=== PATIENT | female | born 1955 | race Caucasian/White ===

== ENCOUNTER → 2018-01-31 | Outpatient (CLI) | payer BC ==
[~2018-01-31] MED LIST: 00186-0370-20 IH; ALBUTEROL SULFAT3 M3 IH; ALEVE 220MG220 MG PO; AMLODIPINE BES2.5 MG PO; ASPIRIN 81M81 MG/TA2 PO; ASPIRIN E.C. 8181 MG PO; ATENOLOL25 MG PO; B COMPLEX #11 TA1 PO; CARDENE 20MG CA20 M1 PO; CARDIZEM 90MG T90 MG PO; COMBIVENT INH14.7 GM IH; CRESTOR40 MG PO; DEXILANT60 MG PO; DIAZIDE PO; DILTIAZEM90 MG PO; ESTROVEN PO; FISH OIL1000 MG PO; FOSAMAX 70MG TA70 MG PO; FOSAMAX PO; FOSAMAX5 MG PO; HCTZ; LASIX 20MG TABL20 MG PO; LISINOPRIL; LIVALO2 MG PO; LYSINE1000 MG PO; MEVACOR 20M20 MG/TAB PO; MEVACOR10 MG PO; MULTIVITAMIN1 CTB PO; NATURAL E400 IU PO; NITROQUICK0.4 MG SL; NITROSTAT0.4 MG/TAB SL; NORVASC 5MG5 MG/TAB PO; OYSCO 500500 M1 PO; PHARMASSURE GA500 MG PO; PLAVIX 75MG TAB75 MG PO; PREDNISONE20 MG PO; PRIL40 PO; PRILOSEC 20MG20 MG PO; PROAIR HFA0.09 MG/AC IH; TYLENOL 8 HR PO; VITAMIN C500 MG PO; VITAMIN D32000 I1 PO; ZESTRIL40 MG PO; ZYRTEC 10MG10 MG PO
== END ==
LOC: COL.RAD 08:09
DX: R14.2 Eructation (principal); R19.7 Diarrhea, unspecified
CPT/HCPCS: A9541

== ENCOUNTER 2020-07-26 06:23 | Day surgery (SDC) | payer BC ==
[~2020-07-26] VITALS: Ht 167.6 cm; Wt 97.7 kg
[2020-07-26] MEDS ORDERED: PROTONIX 40MG T40 MG PO (07:15)
[2020-07-26] MEDS ORDERED: GARLIC100 MG PO (07:16)
[2020-07-26] MEDS ORDERED: TYLENOL 8 HR PO (07:17)
[2020-07-26] MEDS ORDERED: 00186-0370-20 IH (07:18)
[2020-07-26] MEDS ORDERED: MASON NATURAL2000 IU PO (07:18)
[2020-07-26] MEDS ORDERED: ASPIRIN 81M81 MG/TA2 PO (07:19)
[2020-07-26] MEDS ORDERED: PROBIOTIC FORMU1 CAP PO (07:20)
[2020-07-26] MEDS ORDERED: DUO-KAPS1 CAP PO (07:22)
[2020-07-26] MEDS ORDERED: LYSINE1000 MG PO (07:22)
[2020-07-26] MEDS ORDERED: VITAMIN B COMPL1 SGL PO (07:23)
[2020-07-26] MEDS ORDERED: OSCAL 500 TAB500 MG PO (07:24)
[2020-07-26] MEDS ORDERED: LASIX 20MG TABL20 MG PO (07:25)
[2020-07-26] MEDS ORDERED: ALEVE 220MG220 MG PO (07:26)
[2020-07-26] MEDS ORDERED: THEO-24400 MG PO (07:27)
[2020-07-26] MEDS ORDERED: COZAAR 50MG50 MG/TAB PO (07:28)
[2020-07-26] MEDS ORDERED: NITROSTAT0.4 MG/TAB SL (07:29)
[2020-07-26] MEDS ORDERED: EPA FISH OIL1 SGL PO (07:31)
[2020-07-26] MEDS ORDERED: CARAFATE 1GM1 G PO (07:32)
[2020-07-26] MEDS ORDERED: CARDENE 20MG CA20 M1 PO (07:33)
[2020-07-26] MEDS ORDERED: CRESTOR 10MG10 MG PO (07:33)
[2020-07-26] MEDS ORDERED: NATURAL E400 IU PO (07:34)
[2020-07-26] MEDS ORDERED: VITAMIN C500 MG PO (07:35)
[2020-07-26] MEDS ORDERED: LOPRESSOR 550 MG/TAB PO (07:36)
[2020-07-26] MEDS ORDERED: PROAIR HFA0.09 MG/AC IH (07:37)
[2020-07-26 07:40] VITALS: BP 133/76; PULSE 49; TEMP 98
[2020-07-26 09:40] VITALS: BP 125/66; PULSE 51
--- NOTE | 2020-07-26 09:40 | NUR ---
Returns to room 1 per cart from surgery accompanied by Louis Sanders CRNA and Cassandra MALDONADO. Patient is awake and alert. Dressing clean and dry on the left hand. IV fluids infusing and site is free of redness. Siderails up x2 and call light in reach. Daughter in room. Allowed to rest.
[2020-07-26 09:55] VITALS: BP 140/65; PULSE 42
--- NOTE | 2020-07-26 09:55 | NUR ---
Continues to rest without complaints of pain or nausea. Jovanny wrap dressing clean and dry.
[2020-07-26 10:05] VITALS: BP 141/63; PULSE 51
--- NOTE | 2020-07-26 10:05 | NUR ---
Eating toast and drinking Pepsi. Room air sats 95%. Jovanny wrap dressing clean and dry on the left arm.
[2020-07-26 10:20] VITALS: BP 136/69; PULSE 57
--- NOTE | 2020-07-26 10:20 | NUR ---
Tolerated Pepsi and toast. Denies pain or nausea. Left hand dressing clean and dry.
--- NOTE | 2020-07-26 10:30 | NUR ---
IV discontinued and site is free of redness. Patient dresses self.
[2020-07-26] MEDS ORDERED: NORCO 325 MG-51 TAB PO (10:33)
[2020-07-26] MEDS ORDERED: ZOFRAN 4MG T4 MG/TAB PO (10:34)
[2020-07-26] MEDS ORDERED: COLACE 100100 MG/CAP PO (10:34)
--- NOTE | 2020-07-26 10:53 | NUR ---
Dismissal instructions given and voices understanding of these. Provided scripts for Goodridge, Andrés, and Jerome. Follow up appointment made and given to patient.
--- NOTE | 2020-07-26 10:58 | NUR ---
Patient dismissed to home driven by daughter and taken to the front door per wheelchair and assisted into car by this RN with instructions in hand.
== END 2020-07-26 11:58 | disposition home or self-care (01) ==
LOC: SDCO 06:23
DX: G56.02 Carpal tunnel syndrome, left upper limb (principal); I48.91 Unspecified atrial fibrillation; J44.9 Chronic obstructive pulmonary disease, unspecified; E78.00 Pure hypercholesterolemia, unspecified; Z20.828 Contact with and (suspected) exposure to other viral communicable diseases; K21.9 Gastro-esophageal reflux disease without esophagitis; Z87.891 Personal history of nicotine dependence; I25.119 Atherosclerotic heart disease of native coronary artery with unspecified angina pectoris; I10 Essential (primary) hypertension; E78.5 Hyperlipidemia, unspecified; G47.33 Obstructive sleep apnea (adult) (pediatric); I25.118 Atherosclerotic heart disease of native coronary artery with other forms of angina pectoris; Z79.82 Long term (current) use of aspirin; Z88.0 Allergy status to penicillin; Z79.899 Other long term (current) drug therapy; Z91.048 Other nonmedicinal substance allergy status
CPT/HCPCS: J0360; J0690; J1885; J2250; J2405; J2704; J3010; J7030

== ENCOUNTER → 2020-10-21 | Outpatient (CLI) | payer BC ==
[~2020-10-21] MED LIST changes: +CARAFATE 1GM1 G PO; +COLACE 100100 MG/CAP PO; +COZAAR 50MG50 MG/TAB PO; +CRESTOR 10MG10 MG PO; +DUO-KAPS1 CAP PO; +EPA FISH OIL1 SGL PO; +GARLIC100 MG PO; +LOPRESSOR 550 MG/TAB PO; +MASON NATURAL2000 IU PO; +NORCO 325 MG-51 TAB PO; +OSCAL 500 TAB500 MG PO; +PROBIOTIC FORMU1 CAP PO; +PROTONIX 40MG T40 MG PO; +THEO-24400 MG PO; +VITAMIN B COMPL1 SGL PO; +ZOFRAN 4MG T4 MG/TAB PO
== END ==
LOC: COL.RAD 08:00
DX: K21.9 Gastro-esophageal reflux disease without esophagitis (principal)
CPT/HCPCS: A9541

== ENCOUNTER 2020-12-02 08:31 | Day surgery (SDC) | payer BC ==
[~2020-12-02] VITALS: Ht 167.6 cm; Wt 92.5 kg
[~2020-12-02 08:31] MED LIST changes: -CRESTOR 10MG10 MG PO
[2020-12-02 09:48] VITALS: BP 148/94; PULSE 51; TEMP 97.6
[2020-12-02] MEDS ORDERED: K-DUR20 MEQ PO (10:04)
[2020-12-02] MEDS ORDERED: FLEXERIL 1010 MG/TAB PO (10:06)
[2020-12-02] MEDS ORDERED: NATURAL E400 IU PO (10:08)
[2020-12-02] MEDS ORDERED: EPIPEN 2-PAK1 MG/ML IM (10:08)
[2020-12-02] MEDS ORDERED: NITROSTAT0.4 MG/TAB SL (10:11)
[2020-12-02] MEDS ORDERED: ALBUTEROL SULFAT3 M3 IH (10:11)
[2020-12-02] MEDS ORDERED: COZAAR 50MG50 MG/TAB PO (10:12)
[2020-12-02] MEDS ORDERED: LOPRESSOR 550 MG/TAB PO (10:13)
[2020-12-02] MEDS ORDERED: FLONASEALLERGY NS (10:13)
[2020-12-02] MEDS ORDERED: STOOL SOFTENER100 M2 PO (10:14)
[2020-12-02 10:15] VITALS: BP 127/81; PULSE 50
--- NOTE | 2020-12-02 10:19 | NUR ---
Pt returns from Endo procedure via cart. Pt ambulates from cart to recliner with RN assist. Monitors on and alarms set. Call light within reach. Daughter present in room. Pt alert and oriented and voices no concerns. Food and drink brought for pt. Report received from Yolanda RN to ERICA Heredia and relayed to this RN.
--- NOTE | 2020-12-02 10:40 | NUR ---
Pt taking food and drink well. No complications voiced.
--- NOTE | 2020-12-02 10:57 | NUR ---
Discharge instructions given to pt and daughter. Handed to them are a thank you card, discharge instructions, diagnosis information, and procedural photos. All questions answered to her satisfaction.
--- NOTE | 2020-12-02 11:04 | NUR ---
Pt transferred out of hospital via wheelchair and this RN to private vehicle driven by daughter.
== END 2020-12-02 11:04 | disposition home or self-care (01) ==
LOC: SDCO
DX: K21.00 Gastro-esophageal reflux disease with esophagitis, without bleeding (principal); K44.9 Diaphragmatic hernia without obstruction or gangrene; K58.9 Irritable bowel syndrome, unspecified; G47.33 Obstructive sleep apnea (adult) (pediatric); E66.9 Obesity, unspecified; E78.2 Mixed hyperlipidemia; J44.9 Chronic obstructive pulmonary disease, unspecified; I10 Essential (primary) hypertension; I71.2 Thoracic aortic aneurysm, without rupture; I25.119 Atherosclerotic heart disease of native coronary artery with unspecified angina pectoris; I87.2 Venous insufficiency (chronic) (peripheral); J45.909 Unspecified asthma, uncomplicated; Z90.89 Acquired absence of other organs; Z20.822 Contact with and (suspected) exposure to COVID-19; Z90.710 Acquired absence of both cervix and uterus; Z90.49 Acquired absence of other specified parts of digestive tract; Z79.82 Long term (current) use of aspirin; Z85.42 Personal history of malignant neoplasm of other parts of uterus; Z79.891 Long term (current) use of opiate analgesic; Z88.0 Allergy status to penicillin; Z88.1 Allergy status to other antibiotic agents; Z91.030 Bee allergy status; Z91.018 Allergy to other foods; Z99.89 Dependence on other enabling machines and devices; Z79.899 Other long term (current) drug therapy
CPT/HCPCS: J0360; J2704; J3010; J7120

== ENCOUNTER 2023-12-06 09:29 | Day surgery (SDC) | payer BC ==
[~2023-12-06] VITALS: Ht 170.2 cm; Wt 91.6 kg
[~2023-12-06 09:29] MED LIST changes: +EPIPEN 2-PAK1 MG/ML IM; +FLEXERIL 1010 MG/TAB PO; +FLONASEALLERGY NS; +K-DUR20 MEQ PO; +LR 1,000 ML IV SCH; +Ondansetron 4 MG/2 ML VIAL IV PRN; +STOOL SOFTENER100 M2 PO
[2023-12-06 10:38] VITALS: BP 181/83; PULSE 57; TEMP 97
[2023-12-06] MEDS ORDERED: FOSAMAX 70MG TA70 MG PO (10:52)
[2023-12-06] MEDS ORDERED: PROCARDIA20 MG PO (10:53)
[2023-12-06] MEDS ORDERED: SPORANOX100 MG PO (10:56)
[2023-12-06] MEDS ORDERED: COZAAR 25MG25 MG/TAB PO (10:56)
[2023-12-06] MEDS ORDERED: Lidocaine PF 2% (20 MG/ML) 5 ML VIAL ONE ×2 (10:57→12:10)
[2023-12-06] MEDS ORDERED: MELATONIN5 M1 PO (10:59)
[2023-12-06] MEDS ORDERED: VITAMIN D3400 I1 PO (11:00)
[2023-12-06] MEDS ORDERED: PROBIOTIC-PREB1 EACH PO (11:01)
[2023-12-06] MEDS ORDERED: MULTIVITAMIN200 MCG PO (11:02)
[2023-12-06] MEDS ORDERED: VITAMIN E 400 U4001 PO (11:03)
[2023-12-06] MEDS ORDERED: [UNRECOGNIZED DRUG - OTHER] PO (11:03)
[2023-12-06] MEDS ORDERED: VITAMIN B COMPL1 T16 PO (11:04)
[2023-12-06] MEDS ORDERED: GAS RELIEF125 MG PO (11:05)
[2023-12-06] MEDS ORDERED: GINKGO3 (11:06)
[2023-12-06] MEDS ORDERED: MAGNESIUM250 M1 PO (11:07)
[2023-12-06] MEDS ORDERED: HAIRSKINNAILS PO (11:08)
[2023-12-06] MEDS ORDERED: TURMERIC500 MG CHEW (11:10)
[2023-12-06 11:25] VITALS: BP 149/89; PULSE 61
[2023-12-06 11:35] VITALS: BP 149/84; PULSE 62
[2023-12-06 11:45] VITALS: BP 146/75; PULSE 60
--- NOTE | 2023-12-06 13:41 | NUR ---
1125 PATIENT RETUR[place] [facility] [place] [facility] [place]. PT AWAKE AND ALERT. RESPIRATIONS UNLABORED. AMBULATED TO RECLINER CHAIR WITH 2:1 SBA. PT DENIES NAUSEA OR ABDOMINAL PAIN. HOOKED UP TO MONITOR AND VS OBTAINED. CALL LIGHT AT SIDE . 1130 PATIENT TOLERATING PEPSI AND MUFFIN WITHOUT NAUSEA OR DIFFICULTY SWALLOWING (EGD ONLY). 1135 IN ROOM SPEAKING WITH PATIENT. 1200 D/C INSTRUCTIONS REVIEWED WITH PATIENT. PT VERBALIZED UNDERSTANDING AND A COPY OF INSTRUCTIONS PROVIDED IN D/C FOLDER. 1205 PATIENT DRESSES SELF. 1215 PATIENT DISCHARGED FROM UNIT VIA W/C TO A PERSONAL VEHICLE. PT LEFT HOSPITAL IN STABLE CONDITION.
== END 2023-12-06 12:15 | disposition home or self-care (01) ==
LOC: SDCO 09:29
DX: Z12.11 Encounter for screening for malignant neoplasm of colon (principal); K21.9 Gastro-esophageal reflux disease without esophagitis; R13.10 Dysphagia, unspecified; K44.9 Diaphragmatic hernia without obstruction or gangrene; K57.30 Diverticulosis of large intestine without perforation or abscess without bleeding; G47.33 Obstructive sleep apnea (adult) (pediatric)
CPT/HCPCS: J2704; J7120